=== PATIENT | male | born 1970 | race Caucasian/White ===

== ENCOUNTER 2018-10-23 20:02 | Emergency (ER) | payer OTHER ==
[~2018-10-23] VITALS: Ht 157.5 cm; Wt 62.6 kg
[2018-10-23 20:06] VITALS: BP 162/87; PULSE 62; RESP 16; Ht 157.5 cm; Wt 62.6 kg
[2018-10-23] MEDS ORDERED: AMOX500C2 PO (22:58)
[2018-10-23] MEDS ORDERED: IBUP-1542 PO (22:58)
--- NOTE | 2018-10-24 01:31 | ERD ---
ER Documentation Chief Complaint Chief Complaint R mandibular abscess and osteomyelitis HPI 48-year-old male presenting to the emergency department complaining of right lower molar pain intermittently for the past 1 year. The patient was seen for head trauma approximately 3 weeks ago at [facility] where he had imaging completed and he states there may have been evidence of an abscess. He completed a 10-day course of clindamycin 3 times a day and symptoms have improved since then. Additionally, the patient reports left shoulder pain after a fall which was 3 weeks ago. The pain is worse with movement and intermittent. Patient denies any other symptoms at this time. ROS All systems reviewed and are negative except as per history of present illness. Medications Home Meds Active Scripts Ibuprofen* (Motrin*) 600 Mg Tab, 600 MG PO Q6, #30 TAB Prov:ABHISHEK CHEN PA-C 10/23/18 Amoxicillin* (Amoxicillin*) 500 Mg Cap, 500 MG PO TID for 10 Days, CAP Prov:ABHISHEK CHEN PA-C 10/23/18 Allergies Allergies: Coded Allergies: No Known Allergy (Unverified , 10/23/18) PMhx/Soc Medical and Surgical Hx: pt denies Medical Hx, pt denies Surgical Hx Hx Alcohol Use: No Hx Substance Use: No Hx Tobacco Use: No Smoking Status: Never smoker FmHx Family History: No diabetes Physical Exam Vitals Vital Signs Date Temp Pulse Resp B/P (MAP) Pulse Ox O2 O2 Flow FiO2 Time Delivery Rate 10/23/18 98.4 62 16 162/87 98 20:06 (112) Physical Exam Const: No acute distress Head: Atraumatic Eyes: Normal Conjunctiva ENT: Normal External Ears, Nose and Mouth. Poor dentition. Broken tooth noted to the left lower molar region. There is no tenderness palpation of the mandibular region. Neck: Full range of motion. No meningismus. Resp: Clear to auscultation bilaterally Cardio: Regular rate and rhythm, no murmurs Skin: No petechiae or rashes Back: No midline or flank tenderness Ext: No cyanosis, or edema. Tenderness palpation of the left anterior shoulder. No obvious deformity. Patient is neurovascularly intact distally. Range of motion of the left shoulder is slightly limited secondary to pain. Neur: Awake and alert Psych: Normal Mood and Affect Results [address], [place] [address] Radiology Main Line: [phone] DIAGNOSTIC IMAGING REPORT Patient: FELICIANO SONG : 1970 Age: 48 Sex: M MR #: [id number] DOS: 10/23/18 0000 Ordering MD: ABHISHEK CHEN PA-C Location: [facility] Room/Bed: PROCEDURE: XR Shoulder. CLINICAL INDICATION: Left shoulder pain TECHNIQUE: Three views of the left shoulder are available for review. COMPARISON: None available FINDINGS: No acute fracture or dislocation is seen. No radiopaque foreign body is identified. The acromioclavicular and glenohumeral joints are unremarkable. The visualized portions of the left clavicle and upper left rib cage are equally unremarkable. IMPRESSION: 1. No acute fracture or dislocation is seen. RPTAT: HFN .Deon Stoddard MD, Date Time Electronically viewed and signed by .Deon Stoddard MD, MD on 10/23/2018 22:46 .N/ CC: ABHISHEK CHEN PA-C [id number] Procedures/MDM 48-year-old male presenting to the emergency department with signs and symptoms most consistent with left shoulder contusion and possible early dental abscess. No evidence of Tate's angina, sepsis, meningitis, or other emergencies. X-ray of the left shoulder was obtained which showed no evidence of fracture dislocation. The full report interpret by the radiologist may be due to above. The patient was stable and appropriate for discharge and further outpatient management. He was in agreement with the diagnosis, plan, need for follow-up, return precautions. All questions and concerns were addressed prior to discharge. Departure Diagnosis: Primary Impression: Left shoulder pain Additional Impression: Toothache Condition: Fair Patient Instructions: Dental Abscess, Shoulder Contusion Referrals: [facility] YOU HAVE RECEIVED A MEDICAL SCREENING EXAM AND THE RESULTS INDICATE THAT YOU DO NOT HAVE A CONDITION THAT REQUIRES URGENT TREATMENT IN THE EMERGENCY DEPARTMENT. FURTHER EVALUATION AND TREATMENT OF YOUR CONDITION CAN WAIT UNTIL YOU ARE SEEN IN YOUR DOCTORS OFFICE WITHIN THE NEXT 1-2 DAYS. IT IS YOUR RESPONSIBILITY TO MAKE AN APPOINTMENT FOR FOLOW-UP CARE. IF YOU HAVE A PRIMARY DOCTOR --you should call your primary doctor and schedule an appointment IF YOU DO NOT HAVE A PRIMARY DOCTOR YOU CAN CALL OUR PHYSICIAN REFERRAL HOTLINE AT IF YOU CAN NOT AFFORD TO SEE A PHYSICIAN YOU CAN CHOSE FROM THE FOLLOWING [facility] [address] [facility] [address] [facility] [address] [facility] [address] [facility] [address] [facility]. [facility]. [address] [facility] ([facility] walk in clinic) Additional Instructions: Call your primary care doctor TOMORROW for an appointment during the next 1-2 days.See the doctor sooner or return here if your condition worsens before your appointment time. ABHISHEK CHEN PA-C Oct 24, 2018 01:31
== END 2018-10-24 | disposition home or self-care (01) ==
LOC: FTE 20:02
DX: K08.89 Other specified disorders of teeth and supporting structures (principal); M25.512 Pain in left shoulder
CPT/HCPCS: 73030; Z7502